=== PATIENT | female | born 1970 | race Caucasian/White ===

== ENCOUNTER → 2019-08-31 08:44 | Outpatient (BNVA) | payer BC, SELFPAY | PROVIDERS: Family Provider Registered Nurse; PCP Registered Nurse; Visit Provider Registered Nurse | DX: F32.9 Major depressive disorder, single episode, unspecified (principal); N95.1 Menopausal and female climacteric states | CPT/HCPCS: 82672; 84443; 84450; 85025 ==

== ENCOUNTER → 2019-09-28 13:49 | Outpatient (BNVA) | payer BC, SELFPAY | PROVIDERS: Family Provider Registered Nurse; PCP Registered Nurse; Visit Provider Psychiatry & Neurology Psychiatry | DX: F33.1 Major depressive disorder, recurrent, moderate (principal); F41.1 Generalized anxiety disorder | CPT/HCPCS: 99204 ==

== ENCOUNTER → 2019-11-08 08:05 | Outpatient (BNVA) | payer BC, SELFPAY | PROVIDERS: Family Provider Registered Nurse; PCP Registered Nurse; Visit Provider Psychiatry & Neurology Psychiatry | DX: F41.1 Generalized anxiety disorder (principal); F33.1 Major depressive disorder, recurrent, moderate; F43.12 Post-traumatic stress disorder, chronic | CPT/HCPCS: 99213 ==

== ENCOUNTER → 2020-01-03 07:57 | Outpatient (BNVA) | payer BC, SELFPAY | PROVIDERS: Family Provider Registered Nurse; PCP Registered Nurse; Visit Provider Psychiatry & Neurology Psychiatry | DX: F41.1 Generalized anxiety disorder (principal); F33.1 Major depressive disorder, recurrent, moderate | CPT/HCPCS: 99213 ==

== ENCOUNTER 2020-02-10 08:46 | Outpatient (CLI) | payer BC, SELFPAY ==
--- NOTE | 2020-02-10 09:00 | MM_ITS ---
WS: [id number] Bilateral screening digital mammogram, 02/10/2020 Clinical Data: screening mammogram Comparison: 01/11/2019, 07/08/2018, 12/11/2017, 11/27/2017. Findings: The breast parenchymal pattern shows heterogeneous density. Bilateral augmentation mammoplasty implan ts are intact. No spiculated masses or clustered calcifications are seen. There are no secondary sign s of carcinoma. MM/[place] [id number] Impression: 1. Negative bilateral mammogram unchanged. 2. Recommend annual screening mammograms. BIRADS: 2-Benign FOLLOW UP: 1 Year Follow-up The CAD template checker was used.
== END 2020-02-10 08:47 | disposition home or self-care (01) ==
LOC: RADSHAW 08:48
PROVIDERS: PCP Registered Nurse; Visit Provider Registered Nurse
DX: Z12.31 Encounter for screening mammogram for malignant neoplasm of breast (principal)
CPT/HCPCS: 77067

== ENCOUNTER → 2020-03-09 09:37 | Outpatient (BNVA) | payer BC, SELFPAY | PROVIDERS: PCP Registered Nurse; Visit Provider Registered Nurse | DX: Z00.00 Encounter for general adult medical examination without abnormal findings (principal); F41.1 Generalized anxiety disorder | CPT/HCPCS: 80053; 82672; 84443; 84450; 85025 ==

== ENCOUNTER → 2020-05-02 10:36 | Outpatient (BNVA) | payer BC, SELFPAY | PROVIDERS: PCP Registered Nurse; Visit Provider Nurse Practitioner Family | DX: Z20.828 Contact with and (suspected) exposure to other viral communicable diseases (principal) | CPT/HCPCS: 87635 ==

== ENCOUNTER → 2020-08-22 10:02 | Outpatient (BNVA) | payer BC, SELFPAY | PROVIDERS: PCP Registered Nurse; Visit Provider Psychiatry & Neurology Psychiatry | DX: F41.1 Generalized anxiety disorder (principal); F33.1 Major depressive disorder, recurrent, moderate | CPT/HCPCS: 99214 ==

== ENCOUNTER → 2020-11-13 10:04 | Outpatient (BNVA) | payer BC, SELFPAY | PROVIDERS: PCP Registered Nurse; Visit Provider Registered Nurse | DX: Z20.822 Contact with and (suspected) exposure to COVID-19 (principal) | CPT/HCPCS: 87635 ==

== ENCOUNTER → 2021-03-15 08:53 | Outpatient (BNVA) | payer BC, SELFPAY | PROVIDERS: PCP Registered Nurse; Visit Provider Registered Nurse | DX: Z20.822 Contact with and (suspected) exposure to COVID-19 (principal); J32.9 Chronic sinusitis, unspecified | CPT/HCPCS: 87635 ==

== ENCOUNTER → 2021-05-15 10:45 | Outpatient (BNVA) | payer BC, SELFPAY | PROVIDERS: PCP Registered Nurse; Visit Provider Registered Nurse | DX: Z20.822 Contact with and (suspected) exposure to COVID-19 (principal) | CPT/HCPCS: 87635 ==

== ENCOUNTER → 2022-03-10 13:19 | Outpatient (BNVA) | payer BC, SELFPAY | PROVIDERS: PCP Registered Nurse; Visit Provider Registered Nurse | DX: J32.9 Chronic sinusitis, unspecified (principal); J02.0 Streptococcal pharyngitis | CPT/HCPCS: 87880 ==

== ENCOUNTER → 2023-02-27 12:09 | Outpatient (BNVA) | payer BC, SELFPAY | PROVIDERS: PCP Registered Nurse; Visit Provider Registered Nurse | DX: N95.1 Menopausal and female climacteric states (principal); Z13.6 Encounter for screening for cardiovascular disorders; E78.5 Hyperlipidemia, unspecified | CPT/HCPCS: 80053; 80061; 82670; 82672; 85025 ==

== ENCOUNTER 2023-03-12 14:13 | Outpatient (CLI) | payer BC, SELFPAY ==
--- NOTE | 2023-03-12 14:30 | CT_ITS ---
WS: [id number] LDCT LUNG CANCER SCREENING TECHNIQUE: Noncontrast CT of the chest with coronal and sagittal reformatted images. CLINICAL INFORMATION: Z12.2 - Encounter for screening for malignant neoplasm of... COMPARISON: None. DLP: 47.42 mGy.cm DIvol: Mean CTDIvol: 0.80 (mGy) All CT scans at [facility] use at least one of these dose optimization techniques: automat ed exposure control; mA and/or kV adjustment per patient size (includes targeted exams where dose is matched to clinical indication); or iterative reconstruction. FINDINGS: A few tiny noncalcified nodules in the RIGHT middle lobe along the fissure. No other suspic ious pulmonary parenchymal abnormalities. Bilateral breast implants. Normal caliber thoracic aorta. No mediastinal or hilar lymphadenopathy. No axillary lymphadenopathy. Adrenal glands are normal. Mild thoracic curve. Mild thoracic kyphosis. Calcified disc osteophyte com plex or possibly calcified meningioma eccentric to the LEFT at T5-6 with severe LEFT foraminal narrow ing. Mild to moderate central canal stenosis with indentation on the LEFT ventral thoracic cord. This can be further evaluated MRI. IMPRESSION:Calcified disc osteophyte complex or possibly calcified meningioma eccentric to the LEFT a t T5-6 with severe LEFT proximal foraminal narrowing. Mild to moderate central canal stenosis. This c ould be further evaluated with MRI without and with gadolinium enhancement. CT/CT lung screening [id number] LUNG-RADS: 2S-Benign Appearance or Behavior with Significant Findings FOLLOW UP: 12 Month: Continue annual screening with LDCT
--- NOTE | 2023-03-12 14:38 | MM_ITS ---
WS: [id number] VIEWS: MLO and CC views both breasts. Breast implant displacement MLO and cc views also included. 3D digital tomosynthesis is also performed. In this exam. Comparison made with prior exam of 11/27/2017, 07/08/2018, 01/11/2019, 02/10/2020.. Findings: On the CC and MLO breast implant displacement views with tomography there is a 7 mm smoothly marginat ed nodule in the medial lower quadrant of the LEFT breast at about mid depth. No suspicious calcifica tion or architectural distortion. Regional ultrasound is recommended for further work-up. There are n o new findings in the RIGHT breast. Intact bilateral breast implants. The breasts are heterogeneously dense which may obscure small masses Impression: MM/[place] [id number] BI-RADS: 0-Incomplete: Need additional imaging evaluation FOLLOW-UP: See Report This mammogram was also analyzed by the Computer Aided Detection System R2 Imag e Candy Spreader Helper.
== END 2023-03-12 14:14 | disposition home or self-care (01) ==
LOC: RAD 14:14
PROVIDERS: PCP Registered Nurse; Visit Provider Registered Nurse
DX: Z12.31 Encounter for screening mammogram for malignant neoplasm of breast (principal); Z12.2 Encounter for screening for malignant neoplasm of respiratory organs; Z87.891 Personal history of nicotine dependence
CPT/HCPCS: 71271; 77063; 77067

== ENCOUNTER 2023-04-06 14:12 | Outpatient (CLI) | payer BC, SELFPAY ==
--- NOTE | 2023-04-06 14:40 | US_ITS ---
WS: [id number] Exam: US breast LT limited* [id number] Date/Time of Exam: 04/06/2023 2:53 PM Reason For Exam: ABNORMAL MAMMO Regional ultrasound of the lower medial quadrant of the LEFT breast is performed. There are several s mall cysts identified within this region. 1 5 mm cyst is seen at about the 9 o'clock position and melina ears to correspond to the nodular density described on recent screening mammogram. Additional subcent imeter cysts are also noted in this region. No suspicious solid mass or nodule was seen. A breast imp lant is present. IMPRESSION: 1. 5 mm cyst noted at the 9 o'clock position in the LEFT breast appears to correspond to the nodular density described on recent mammography. 2. There are additional subcentimeter cysts in the lower medial quadrant of the LEFT breast. 3. No sign of suspicious solid nodule or solid mass in this region. BI-RADS Category 2. Recommendations: Continued yearly screening mammography.
== END 2023-04-06 14:13 | disposition home or self-care (01) ==
LOC: RAD 14:15
PROVIDERS: PCP Registered Nurse; Visit Provider Registered Nurse
DX: R92.8 Other abnormal and inconclusive findings on diagnostic imaging of breast (principal); N60.02 Solitary cyst of left breast
CPT/HCPCS: 76642

== ENCOUNTER 2023-04-08 08:30 | Day surgery (SDC) | payer BC, SELFPAY ==
[2023-04-08 08:40] VITALS: BP 130/111; PULSE 112; RESP 18; TEMP 36.2; O2SAT 97; BMI 23.3
[2023-04-08] MEDS: sodium chloride 0.9% 1,000 ML 30 ML IV (08:44)
--- NOTE | 2023-04-08 09:35 | ANES.PREANE2 ---
Pre-Anesthetic Assessment Height/Weight: Height 1.65 m Weight 63.503 kg Temp Pulse Resp BP Pulse Ox O2 Del Method 97.1 F L 112 H 18 130/111 97 Room Air 04/08/23 08:40 04/08/23 08:40 04/08/23 08:40 04/08/23 08:40 04/08/23 08:40 04/08/23 08:40 Operation Date: 04/08/23 09:30 Proposed Procedures p [id number] diagnostic colonoscopy, G0121 screen colon A risk Z80.0,K92.1(Not Applicable) - Brijesh Carey DO Familial anesthetic complications: None Was Beta Yuan taken within 24 hours: N/A Was Clonidine taken within 24 hours: N/A Last intake: Intake Last Liquid Date 04/07/23 Last Liquid Time 22:30 Last Solid Date 04/06/23 Last Solid Time 18:00 Social No alcohol vapes Exam alert, oriented x 3, clear to auscultation bilaterally and regular rate & rhythm Airway Mallampati: Class I Dentition: partials Neuropsych Anxiety and Headache Anesthetic Plan ASA status: 2 Anesthesia: MAC Risk of > 500 ml blood loss (7ml/kg in children): No Medications/Allergies Home Medications Medication Instructions Recorded Confirmed Last Taken Type sumatriptan succinate 100 mg tablet See Rx Instructions .Route 10/29/22 04/06/23 Unknown Rx .COMPLEX #10 tabs levocetirizine 5 mg tablet See Rx Instructions .Route 11/06/22 04/08/23 04/07/23 Rx .COMPLEX #90 tabs sumatriptan succinate 6 mg/0.5 mL See Rx Instructions .Route 02/09/23 04/06/23 03/09/23 Rx subcutaneous solution .COMPLEX #2.5 mL bupropion HCl 300 mg 24 hr tablet, 300 mg PO QAM #30 tabs 03/12/23 04/08/23 04/07/23 Rx extended release buspirone 15 mg tablet 15 mg PO BID #60 tabs 03/12/23 04/08/23 04/07/23 Rx trazodone 50 mg tablet See Rx Instructions PO DAILY #60 03/12/23 04/06/23 04/03/23 Rx tabs Allergies Allergy/AdvReac Type Severity Reaction Status Date / Time No Known Allergies Allergy Verified 03/16/23 13:52 Current Medications Generic Name Dose Route Start Last Admin Trade Name Freq PRN Reason Stop Dose Admin Sodium Chloride 1,000 mls @ 30 mls/hr 04/08/23 08:45 04/08/23 08:44 Sodium Chloride 0.9% IV 04/09/23 08:44 30 mls/hr .Q24H MARCELLUS Administration PFSH Anesthesia Medical History Anxiety Depression Generalized anxiety disorder Insomnia Migraine headache Partner relationship problem Psychiatric care Surgical History Hx of section Hx of hysterectomy Family History Other Aneurysm Cancer Social History (Updated 04/06/23 @ 08:35 by Heather Vega RN) Smoking and tobacco/nicotine status: former use of tobacco/nicotine Quit status (tobacco/nicotine): has quit using Year quit tobacco: 2017 Second hand smoke exposure: No Alcohol intake: never Substance/Drug Use: never Adopted: No Caregiver/support person: No Lives independently: No Household members: spouse Sexually active: Yes Do you think of yourself as: Straight/Heterosexual Current gender identity: Female Data Anesthesia Cardiac Studies: No Data to Display
--- NOTE | 2023-04-08 11:04 | P.HPUD_ITS ---
Surgery/Procedure H&P Update DATE OF PROCEDURE: April 08, 2023 DATE H&P PERFORMED: 03/10/23 H&P UPDATE INFORMATION: I have reviewed H&P completed within last 30 days, I have examined patient prior to procedure and No changes to prior documentation PLANNED PROCEDURE: Operation Date: 04/08/23 09:30 Proposed Procedures p [id number] diagnostic colonoscopy, G0121 screen colon A risk Z80.0,K92.1(Not Applic able) - Brijesh Carey, DO
[2023-04-08 11:23] VITALS: BP 118/83; PULSE 88; RESP 14; TEMP 36.1; O2SAT 95
[2023-04-08 11:38] VITALS: BP 109/80; PULSE 86; RESP 16; O2SAT 100
== END 2023-04-08 12:12 | disposition home or self-care (01) ==
PROVIDERS: PCP Registered Nurse; Visit Provider Surgery
PROC: 0DJD8ZZ Inspection of Lower Intestinal Tract, Via Natural or Artificial Opening Endoscopic (ICD-10-PCS; CPT 45378; principal; 2023-04-08 09:30)
DX: K92.1 Melena (principal); Z80.0 Family history of malignant neoplasm of digestive organs; D12.2 Benign neoplasm of ascending colon; D12.4 Benign neoplasm of descending colon; F17.210 Nicotine dependence, cigarettes, uncomplicated
CPT/HCPCS: 45385; 76937; 88305; J2704; J7030

== ENCOUNTER 2023-04-21 09:04 | Outpatient (CLI) | payer BC, SELFPAY ==
--- NOTE | 2023-04-21 09:30 | MR_ITS ---
WS: [id number] MRI THORACIC SPINE WITHOUT CONTRAST TECHNIQUE: Sagittal T1, T2 and STIR imaging. Axial T2 imaging. Noncontrast imaging obtained. CLINICAL INFORMATION: M48.04 - Spinal stenosis, thoracic region COMPARISON: CT 03/12/2023 FINDINGS: Mild thoracic curve. Mild thoracic kyphosis. No acute compression fractures. Disc osteophyte protrusi on at LEFT T5-6 unchanged compared to the prior lung screening CT. Disc osteophyte protrusion impinge s the LEFT subarticular recess with mild central canal stenosis and slight indentation of the LEFT ve ntral thoracic cord. Moderate LEFT proximal foraminal narrowing. Disc osteophyte protrusion measures 11 x 6 mm. Tiny shallow disc protrusion T7-T8. Tiny central disc protrusion T8-T9 with slight indentation on the thoracic cord. Mild facet arthropathy lower thoracic spine. Small osteophyte protrusions C5-C6 and C6-C7 in the cervical spine on wheat washer imaging. IMPRESSION: 1. Prominent LEFT paracentral T5-T6 disc osteophyte protrusion with slight indentation on the thorac ic cord and mild central canal stenosis. Moderate LEFT proximal foraminal narrowing. 2. Small disc osteophyte protrusions C5-C6 and C6-C7 in the cervical spine on wheat washer imaging. 3. Tiny central disc protrusion T8-T9 with slight indentation on the thoracic cord.
== END 2023-04-21 09:05 | disposition home or self-care (01) ==
LOC: RAD 09:04
PROVIDERS: PCP Registered Nurse; Visit Provider Registered Nurse
DX: M48.04 Spinal stenosis, thoracic region (principal); M51.24 Other intervertebral disc displacement, thoracic region; M50.222 Other cervical disc displacement at C5-C6 level; M50.223 Other cervical disc displacement at C6-C7 level
CPT/HCPCS: 72146

== ENCOUNTER → 2023-05-14 14:34 | Outpatient (BNVA) | payer BC, SELFPAY | PROVIDERS: PCP Registered Nurse; Referring Provider Registered Nurse; Visit Provider Orthopaedic Surgery | DX: M48.04 Spinal stenosis, thoracic region (principal) | CPT/HCPCS: 72070 ==

== ENCOUNTER → 2023-05-25 11:27 | Outpatient (BNVA) | payer BC, SELFPAY | PROVIDERS: PCP Registered Nurse; Visit Provider Registered Nurse | DX: Z20.822 Contact with and (suspected) exposure to COVID-19 (principal) | CPT/HCPCS: 87400; 87426 ==